=== PATIENT | male | born 1955 | race Caucasian/White ===

== ENCOUNTER 2017-07-04 14:42 | Inpatient (IN) | payer OTHER ==
[~2017-07-04] VITALS: Ht 170.2 cm; Wt 66.2 kg
[2017-07-04 14:45] VITALS: BP 161/99
--- NOTE | 2017-07-04 15:03 | NUR ---
PATIENT STILL IN [facility]. EKG DONE. ERMD MADE AWARE
--- NOTE | 2017-07-04 15:15 | NUR ---
BIB EMS WITH C/O BL CP X 1 MONTH; SEEN IN [facility] YESTERDAY AND BEEN DISCHARGED FROM ER. ASA 324MG. FIELD/EKG FIELD. DENIES N/V. HX: COPD,PACEMAKER,HTN,DM.RT. BKA WITH PROSTHESIS. PATIENT CAN NOT REMEMBER NAME OF MEDS. DENIES N/V/D; SKIN IS PINK/WARM/DRY; AAOX4; LUNGS CLEAR BL; HR EVEN AND REGULAR; PT DENIES ANY FEVER, SOB, OR COUGH AT THIS TIME; PATIENT STATES PAIN OF 9/10 AT THIS TIME; VSS; PATIENT POSITIONED FOR COMFORT; HOB ELEVATED; BEDRAILS UP X2; BED DOWN. ER MD MADE AWARE OF PT STATUS.
--- NOTE | 2017-07-04 15:33 | NUR ---
PT TAKEN TO BED 11 BY WHEELCHAIR
[2017-07-04 15:52] LABS: BASOPHILS # (AUTO) 0.1 K/uL (0.00-0.22); BASOPHILS % (AUTO) 2.1 % (0.0-2.0); EOSINOPHILS # (AUTO) 0.1 K/uL (0-0.4); EOSINOPHILS % (AUTO) 1.7 % (0.0-4.0); HEMATOCRIT 35.7 % (36-52); HEMOGLOBIN 11.6 g/dL (12.0-18.0); LYMPHOCYTES # (AUTO) 0.7 K/uL (2.0-11.5); LYMPHOCYTES % (AUTO) 16.7 % (20.5-51.1); MEAN CORPUSCULAR HEMOGLOBIN 29 pg (27-31); MEAN CORPUSCULAR HGB CONC 33 g/dL (33-37); MEAN CORPUSCULAR VOLUME 88 fL (80-94); MONOCYTES # (AUTO) 0.3 K/uL (0.8-1.0); MONOCYTES % (AUTO) 8.2 % (1.7-9.3); NEUTROPHILS # (AUTO) 3.1 K/uL (1.8-7.7); NEUTROPHILS % (AUTO) 71.3 % (42.2-75.2); PLATELET COUNT (AUTO) 101 K/uL (140-450); RED BLOOD CELL COUNT(AUTO) 4.04 MIL/uL (4.20-6.10); RED CELL DISTRIBUTION WIDTH 17.2 % (11.6-13.7); WHITE BLOOD COUNT (AUTO) 4.3 K/uL (4.8-10.8)
[2017-07-04 16:19] LABS: ANION GAP 14.6 (8-16); CARBON DIOXIDE 29.9 mmol/L (21-32); CREATININE 2.5 mg/dL (0.7-1.3); POTASSIUM 4.5 mmol/L (3.5-5.1)
[2017-07-04 16:24] LABS: ALBUMIN 2.4 g/dL (3.4-5.0); TOTAL BILIRUBIN 0.6 mg/dL (0.0-1.0)
[2017-07-04] MEDS ORDERED: CLINDAMYCIN 600 MG in DEXTROSE 5% 50 ML IV ONE (17:55)
[2017-07-04] MEDS ORDERED: ONDANSETRON 4 MG/2 ML VIAL IVP ONE (17:55)
[2017-07-04] MEDS ORDERED: MORPHINE SULFATE 4 MG/ML SYR IVP ONE (17:55)
[2017-07-04] MEDS ORDERED: CLINDAMYCIN 600 MG/4 ML VIAL ONE ×2 (18:00→21:15)
[2017-07-04] MEDS ORDERED: MORPHINE SULFATE 2 MG/ML SYR IM/IVP PRN (18:20)
--- NOTE | 2017-07-04 19:40 | NUR ---
Patient will be admitted to care of DR SCHULER. Admited to [facility]. Will go to room 111A. Belongings list completed. Report to MOE BECERRA .
[2017-07-04 19:45] VITALS: BP 135/84
--- NOTE | 2017-07-04 19:45 | NUR ---
PT ARRIVED AT UNIT VIA GURNEY, PT WENT TO ROOM 111A, STABLE, NO DISTRESS NOTED, IV TO L AC 20G SL, INTACT, PATENT, PT ON ROOM AIR NO SOB NOTED, ORIENTED PT TO UNIT, INITIAL ASSESSMENT DONE, ALL SAFETY PRECAUTION MET, CALL LIGHT WITHIN REACH, WILL CONTINUE TO MONITOR.
--- NOTE | 2017-07-04 20:00 | NUR ---
PT REFUSED TO LET NURSE ASSESS R ARM BANDAGES, STATING THAT HE WOULD BE MORE COMFORTABLE IF THE WOUND NURSE OPENS IT BECAUSE IT WILL BLEED. Addendum: 07/05/17 at 0116 by Emma Wheatley RN L ARM, NOT R ARM
--- NOTE | 2017-07-04 20:10 | NUR ---
PT MOVED TO ROOM 114, VIA BED, ALL BELONGING WITH PT, PT STABLE, NO DISTRESS NOTED, ON 2LPM O2 VIA NC, NO SOB, CALL LIGHT WITHIN REACH, WILL CONTINUE TO MONITOR.
--- NOTE | 2017-07-04 20:30 | NUR ---
CALLED DR. SCHULER REGARDING PT UNCONTROLLABLE PAIN, PT STATED HE IS IN PAIN ON THE CHEST 03/09, HE STATED THAT "1MG MORPHINE WOULD NOT DO ANYTHING, CALL THE DOCTOR, I REFUSED TO TAKE IT." PAGED DR. SCHULER AWAITING FOR TO CALL BACK.
[2017-07-04] MEDS ORDERED: DEXTROSE 50% 50 ML SYR IVP PRN (20:45)
--- NOTE | 2017-07-04 20:45 | NUR ---
TALKED TO DR. SCHULER, INFORMED DR PT CONDITION, DR ORDERED 5/325MG NORCO PO Q4H PRN PAIN, WILL PUT IN ORDER AND CONTINUE WITH ORDER.
[2017-07-04] MEDS: NACL 0.9% 1,000 ML IV SCH (21:00)
[2017-07-04] MEDS: CLINDAMYCIN 600 MG in DEXTROSE 5% 50 ML IV SCH (21:29)
--- NOTE | 2017-07-04 21:29 | NUR ---
INFORMED PT REGARDING ORDERS AND EDUCATE PT REGARDING PAIN MANAGEMENT, PT STATED UNDERSTANDING, AND WOULD TAKE THE MORPHINE ORIGINALLY ORDERED. PAIN MEDICATION GIVEN, PT TOLERATED WELL, NO DISTRESS NOTED, CALL LIGHT WITHIN REACH.
[2017-07-04] MEDS: METOPROLOL 25 MG TAB PO SCH (21:30)
[2017-07-04] MEDS: BLOOD GLUCOSE MONITORING 1 DEV DEV FS SCH (21:30)
[2017-07-04] MEDS: INSULIN LISPRO SLIDING SCALE 100 UNITS/ML VIAL SUBQ PRN (21:38)
[2017-07-04] MEDS: HYDROcodone/APAP 5/325 MG 1 TAB TAB PO PRN (23:37)
--- NOTE | 2017-07-04 23:37 | NUR ---
PT C/O PAIN 6/10 ON THE CHEST, PAIN MEDICATION ORDERED GIVEN, PT TOLERATED WELL, NO DISTRESS NOTED, CALL LIGHT WITHIN REACH, WILL CONTINUE TO MONITOR.
[2017-07-05] VITALS: BP 135/70
--- NOTE | 2017-07-05 | NUR ---
PT KEEPS TAKING OFF NC, STATED THAT HE IS BREATHING FINE, O2 SATURATION AT 96% ON ROOM AIR. PT STABLE, NO DISTRESS NOTED, NO SOB, CALL LIGHT WITHIN REACH, WILL CONTINUE TO MONITOR.
[2017-07-05 00:40] LABS: CREATINE KINASE MB 4.1 ng/mL (0-3.6)
--- NOTE | 2017-07-05 01:28 | NUR ---
PT C/O CHEST PAIN 03/09, PAIN MEDICATION ORDERED IS NOT DUE YET, PAGED DR. SCHULER REGARDING PT PAIN, AWAITING FOR TO CALL BACK.
--- NOTE | 2017-07-05 01:32 | NUR ---
DR. SCHULER CALLED, INFORMED REGARDING PT C/O PAIN AND MEDICATION ORDERS, ORDERED DILAUDID 0.5 MG IVP Q4HR, AND STATED THAT IT IS OK TO GIVE IT RIGHT NOW. WILL CONTINUE WITH DR MORE.
[2017-07-05] MEDS ORDERED: HYDROmorphone PFS 2 MG/ML SYR IVP PRN (01:35)
[2017-07-05] MEDS ORDERED: HYDROmorphone PFS 2 MG/ML SYR ONE (01:36)
--- NOTE | 2017-07-05 01:39 | NUR ---
DILAUDID 0.5MG (0.25ML) GIVEN TO PT FOR CHEST PAIN 10/[address] ORDER. PT TOLERATED WELL, NO DISTRESS NOTED, CALL LIGHT WITHIN REACH. WILL CONTINUE TO MONITOR.
--- NOTE | 2017-07-05 02:50 | NUR ---
CHECKED ON PT, PT RESTING WATCHING TV, NO DISTRESS NOTED, CALL LIGHT WITHIN REACH, WILL CONTINUE TO MONITOR.
--- NOTE | 2017-07-05 03:22 | NUR ---
DR. SCHULER CALLED, TO ORDER CT WITHOUT CONTRAST TO R/O AORTIC DISSECTION, STAT, WILL CONTINUE WITH ORDERS. Addendum: 07/05/17 at 0339 by Emma Wheatley RN AMEND TIME 0306
--- NOTE | 2017-07-05 03:22 | NUR ---
PT LEFT THE UNIT VIA BED, PT STABLE, NO DISTRESS NOTED.
[2017-07-05] MEDS: HYDROcodone/APAP 5/325 MG 1 TAB TAB PO PRN (03:53)
[2017-07-05] MEDS: ONDANSETRON 4 MG/2 ML VIAL IVP PRN ×3 (03:55→13:43)
[2017-07-05 04:00] VITALS: BP 133/83
[2017-07-05] MEDS: NACL 0.9% 1,000 ML IV SCH (04:16)
[2017-07-05] MEDS ORDERED: CLINDAMYCIN 600 MG/4 ML VIAL ONE (05:28)
[2017-07-05] MEDS: CLINDAMYCIN 600 MG in DEXTROSE 5% 50 ML IV SCH ×3 (05:45→21:07)
[2017-07-05] MEDS: INSULIN LISPRO SLIDING SCALE 100 UNITS/ML VIAL SUBQ PRN (05:59)
--- NOTE | 2017-07-05 06:04 | NUR ---
PT C/O OF PAIN ON CHEST 03/09, PAIN MEDICATION GIVEN, PT TOLERATED WELL, NO DISTRESS NOTED, CALL LIGHT WITHIN REACH.
[2017-07-05] MEDS: BLOOD GLUCOSE MONITORING 1 DEV DEV FS SCH ×4 (06:07→21:16)
--- NOTE | 2017-07-05 07:20 | NUR ---
ENDORSED PLAN OF CARE TO DAY SHIFT NURSE REZA ROSA, PT STABLE, NO DISTRESS NOTED, CALL LIGHT WITHIN REACH.
--- NOTE | 2017-07-05 07:21 | NUR ---
RECEIVED REPORT FROM STICKER OPERATOR NURSE HERNAN AT BEDSIDE FOR CONTINUITY OF CARE. PT IS AWAKE AND ORIENTED X 4. INTRODUCED SELF AND UPDATED BOARD. PT ON TELE MONITOR. SKIN WARM AND DRY. MULTIPLE SKIN TEARS ON UPPER EXTREMITIES. MULTIPLE SCABS ON LEFT LEG, DRESSING TO RIGHT LEG STUMP DRY AND INTACT. O2 SAT 98% ON RA. NO COMPLAINTS OF CHEST PAIN OR DISTRESS. IV TO L AC 20G INFUSING NS AT 100ML/HR. SITE INTACT. SITTING UP IN BED EATING BREAKFAST. BED IN LOW POSITION, WHEELS LOCKED, CALL LIGHT WITHIN REACH. WILL CONTINUE TO MONITOR.
[2017-07-05 08:00] VITALS: BP 108/72
[2017-07-05 08:23] LABS: HEMATOCRIT 35.4 % (36-52); HEMOGLOBIN 11.1 g/dL (12.0-18.0); MEAN CORPUSCULAR HEMOGLOBIN 28 pg (27-31); MEAN CORPUSCULAR HGB CONC 31 g/dL (33-37); MEAN CORPUSCULAR VOLUME 89 fL (80-94); PLATELET COUNT (AUTO) 91 K/uL (140-450); RED BLOOD CELL COUNT(AUTO) 3.97 MIL/uL (4.20-6.10); RED CELL DISTRIBUTION WIDTH 17.4 % (11.6-13.7); WHITE BLOOD COUNT (AUTO) 4.4 K/uL (4.8-10.8)
[2017-07-05 08:40] LABS: EOSINOPHILS % (MANUAL) 4 % (0-4); LYMPHOCYTES % (MANUAL) 25 % (20-46); MONOCYTES % (MANUAL) 9 % (5-12)
[2017-07-05] MEDS ORDERED: CLINDAMYCIN 600 MG/4 ML VIAL IV SCH (09:00)
[2017-07-05] MEDS ORDERED: ENOXAPARIN 30 MG/0.3 ML SYR SUBQ SCH (09:00)
[2017-07-05 09:02] LABS: ALBUMIN 2.3 g/dL (3.4-5.0); ANION GAP 11.7 (8-16); CARBON DIOXIDE 29.8 mmol/L (21-32); CREATININE 2.7 mg/dL (0.7-1.3); POTASSIUM 4.5 mmol/L (3.5-5.1); TOTAL BILIRUBIN 0.6 mg/dL (0.0-1.0)
[2017-07-05] MEDS: ASPIRIN 81 MG TAB.CHEW PO SCH (09:08)
[2017-07-05] MEDS: ATORVASTATIN 20 MG TAB PO SCH (09:08)
[2017-07-05] MEDS: METOPROLOL 25 MG TAB PO SCH (09:08)
[2017-07-05] MEDS: FOAM DRESSING TP SCH (09:09)
--- NOTE | 2017-07-05 09:09 | NUR ---
PATIENT HAS BEEN SCREENED AND CATEGORIZED HIGH NUTRITION RISK. PATIENT WILL BE SEEN WITHIN 1-2 DAYS OF ADMISSION. 07/04/18-07/05/[address]
[2017-07-05 09:14] LABS: CREATINE KINASE MB 5.9 ng/mL (0-3.6)
--- NOTE | 2017-07-05 10:12 | NUR ---
WOUND CARE EVALUATION NOTES: REASON FOR EVALUATION: MULTIPLE WOUNDS COMPLETE SKIN ASSESSMENT DONE ON THIS 80 Y/O MALE PATIENT FROM [facility] TO [facility], WITH INITIAL DIAGNOSIS OF FEVER AND PULL OUT SUPRAPUBIC CATH. PAST MEDICAL HISTORY INCLUDE COPD, CVA, DIABETES, HYPERTENSION AND ESRD. ALL ABOVE INFORMATION WAS OBTAINED FROM THE ADMISSION H&P. LABS ARE WBC 14.9, H/H 9.3/29.2, POC GLUCOSE 77, ALBUMIN 2.9. CURRENT MEDS INCLUDE PIPERACILLIN, QUETIAPINE, LEVOTHYROXINE, DONEPEZIL HCL, TRAMADOL AND ATIVAN. PATIENT IS AWAKE, ALERT, AND ABLE TO FOLLOW SIMPLE COMMANDS. SKIN WARM TO TOUCH WNL, THICKENED TOENAILS, NO EDEMA, NO HAIR GROWTH AND BILATERAL PEDAL PULSES PRESENT. RIGHT FOREARM PERIPHERAL IV PATENT AND INTACT. LEFT ARM AV FISTULA NOTED. SUPRAPUBIC CATHETER PATENT AND INTACT TO ALVIN COLORED URINE IN SMALL AMOUNT. NEEDS ASSISTANCE IN TURNING. PLAN OF CARE AND PRESSURE PREVENTIVE MEASURES DISCUSSED WITH PT AND PRIMARY NURSE. PT UNABLE TO VERBALIZE UNDERSTANDING. WILL REINFORCE TEACHING. INTEGUMENTARY: -MULTIPLE BRUISES TO UPPER EXTREMITIES POSSIBLE FROM BLOOD DRAW AND BLOOD THINNER MEDICATION -LEFT HAND SKIN TEAR 4X5X0.1 WOUND BED IS RED WITH SMALL AMOUNT OF BLEEDING, NO ODOR, NO DRAINAGE. -RIGHT LATERAL THIGH SKIN ALTERATION POSSIBLE FRICTION FROM PROTHESIS 4X2X0.1 CM WOUND BED PALE PINK, DRY , NO ODOR ,WOUND EDGE FLAT, PAIN 0/10. -MULTIPLE SCABS TO LLE WITH LARGEST ON LEFT STEWART MEASURED 3X1.5CM -L/R BUTTOCKS FUNGAL RASHES DERMATITIS -LEFT HEEL THICK CALLUS RECOMMENDATIONS: -CLEANSE LEFT HAND SKIN TEAR WITH NS. PAT DRY APPLY VERSATEL AND COVER WITH DRY DRESSING AND WRAP WITH KERLIX CHANGE Q5 DAYS AND PRN IF SOILING -CLEANSE RIGHT LATERAL THIGH SKIN ALTERATION WITH NS. PAT DRY APPLY SILVASORB GEL WITH ADAPTIC DRESSING AND COVER WITH DRY DRESSING AND WRAP WITH KERLIX QD AND PRN IF SOILING. -PAINT MULTIPLE SCABS TO LLE WITH BETADINE SOLUTION BID AND BUCKLE GLUER -CLEANSE L/R BUTTOCKS FUNGAL RASHES WITH SOAP AND WATER, PAT DRY, APPLY ANTIFUNGAL CREAMS AND LEAVE IT OPEN TO AIR -TURN AND REPOSITION PATIENT Q2H -ASSESS AND MONITOR SKIN CONDITION DURING POSITION CHANGE, PLEASE PAY ATTENTION TOHEEL -OFFLOAD BILATERAL HEELS BY PLACING PILLOWS UNDER CALVES AT ALL TIMES, UNLESS OTHERWISE CONTRAINDICATED -PRESSURE REDISTRIBUTION SURFACE THERAPY -KEEP SKIN CLEAN AND DRY AT ALL TIMES. RECOMMENDATIONS DISCUSSED WITH PRIMARY RN WILL FOLLOW UP PATIENT Q 7 -10 DAYS AND PRN. PLEASE CONTACT WOUND CARE NURSE FOR ANY CONCERNS AND CHANGES IN WOUND CONDITION Addendum: 07/05/17 at 1054 by Jen Osorio RN (Grace) CLARIFICATION : NO PRESSURE ULCER INJURY ON SACRALCOCCYX AREA , AREA IS DRY AND CLEAN, WITH SKIN INTACT. Addendum: 07/05/17 at 1304 by Jen Osorio RN (Grace) CHARTING :WRONG DOCUMENTATION
--- NOTE | 2017-07-05 11:01 | NUR ---
CM NOTE INITIAL REVIEW FAXED TO [facility] [phone] JOANNA # [phone]
[2017-07-05 12:00] VITALS: BP 120/75
[2017-07-05] MEDS ORDERED: NACL 0.9% IRR 250 ML BOTTLE IR SCH (13:00)
[2017-07-05] MEDS: MILD SOAP AND WATER TP SCH (13:00)
[2017-07-05] MEDS: GAUZE TP SCH (13:00)
[2017-07-05] MEDS: NACL 0.9% IRR 250 ML BOTTLE IR SCH ×2 (13:00)
[2017-07-05] MEDS: NITROGLYCERIN 2% 1 GM PKT TP SCH ×2 (13:00→21:09)
--- NOTE | 2017-07-05 13:04 | NUR ---
WOUND CARE EVALUATION NOTES: REASON FOR EVALUATION: OPEN WOUNDS COMPLETE SKIN ASSESSMENT DONE ON THIS 62 Y/O MALE PATIENT FROM [facility], WITH INITIAL DIAGNOSIS OF C/O CHEST PRESSURE. PAST MEDICAL HISTORY INCLUDE COPD, RIGHT BKA, DIABETES, HYPERTENSION AND AICD. ALL ABOVE INFORMATION WAS OBTAINED FROM THE ADMISSION H&P AND PT. PT IS AAX4. LABS ARE WBC 4.3, H/H 11.6/35.7, GLUCOSE 380, ALBUMIN 2.4. SKIN WARM AND THIN TO TOUCH , THICKENED TOENAILS LEFT FOOT, NO EDEMA, WITH HAIR GROWTH AND LEFT FOOT DORSAL PEDAL PULSES PRESENT AND NORMAL.ORTHO PROTHESIS TO RIGHT BKA AT BED SIDE. PLAN OF CARE DISCUSSED WITH PRIMARY NURSE AND PT. PT VERBALIZES UNDERSTAND. INTEGUMENTARY: CLARIFICATION : NO PRESSURE ULCER INJURY ON SACRALCOCCYX AREA , AREA IS DRY AND CLEAN, WITH SKIN INTACT. -MULTIPLE BRUISES TO UPPER EXTREMITIES POSSIBLE FROM BLOOD DRAW AND BLOOD THINNER MEDICATION -LEFT HAND SKIN TEAR 4X5X0.1 WOUND BED IS RED WITH SMALL AMOUNT OF BLEEDING, NO ODOR, NO DRAINAGE. -RIGHT LATERAL THIGH SKIN ALTERATION POSSIBLE FRICTION FROM PROTHESIS 4X2X0.1 CM WOUND BED PALE PINK, DRY , NO ODOR ,WOUND EDGE FLAT, PAIN 0/10. -MULTIPLE SCABS TO LLE WITH LARGEST ON LEFT STEWART MEASURED 3X1.5CM -L/R BUTTOCKS FUNGAL RASHES DERMATITIS -LEFT HEEL THICK CALLUS RECOMMENDATIONS: -CLEANSE LEFT HAND SKIN TEAR WITH NS. PAT DRY APPLY VERSATEL AND COVER WITH DRY DRESSING AND WRAP WITH KERLIX CHANGE Q5 DAYS AND PRN IF SOILING -CLEANSE RIGHT LATERAL THIGH SKIN ALTERATION WITH NS. PAT DRY APPLY SILVASORB GEL WITH ADAPTIC DRESSING AND COVER WITH DRY DRESSING AND WRAP WITH KERLIX QD AND PRN IF SOILING. -PAINT MULTIPLE SCABS TO LLE WITH BETADINE SOLUTION BID AND FRANKIE -CLEANSE L/R BUTTOCKS FUNGAL RASHES WITH SOAP AND WATER, PAT DRY, APPLY ANTIFUNGAL CREAMS AND LEAVE IT OPEN TO AIR -TURN AND REPOSITION PATIENT Q2H -ASSESS AND MONITOR SKIN CONDITION DURING POSITION CHANGE, PLEASE PAY ATTENTION TO LEFT HEEL -OFFLOAD BILATERAL HEELS BY PLACING PILLOWS UNDER CALVES AT ALL TIMES, UNLESS OTHERWISE CONTRAINDICATED -PRESSURE REDISTRIBUTION SURFACE THERAPY -KEEP SKIN CLEAN AND DRY AT ALL TIMES. RECOMMENDATIONS DISCUSSED WITH PRIMARY RN WILL FOLLOW UP PATIENT Q 7 -10 DAYS AND PRN. PLEASE CONTACT WOUND CARE NURSE FOR ANY CONCERNS AND CHANGES IN WOUND CONDITION
--- NOTE | 2017-07-05 13:25 | NUR ---
PT STATED THAT HIS STOMACH HURTS AND THAT "HE DOES NOT FEEL GOOD." OFFERED PAIN MEDICATION. PT REFUSED AND REQUESTED ICE CHIPS. PAGED FOR DR. SOLOMON
[2017-07-05] MEDS: ALUMINUM HYD/MAG/SIMETHICONE 30 ML UDC PO PRN ×2 (13:42→23:25)
--- NOTE | 2017-07-05 14:00 | NUR ---
ADMINISTERED ZOFRAN FOR NAUSEA. PT COMPLAINED OF ABD PAIN. OFFERED MYLANTA PO. PT REFUSED MED. EXPLAINED RISKS AND BENEFITS. PT STATED "JUST LET ME REST, I DON'T WANT TO TAKE THAT NOW." PT MOANING FROM ABD PAIN. OFFERED PAIN MED. REFUSED MED. REPORTED TO DR. SOLOMON. WILL CONTINUE TO MONITOR.
--- NOTE | 2017-07-05 15:58 | NUR ---
CHECKED ON PT IN ROOM. STATED THAT HIS "STOMACH HURTS." OFFERED MYLANTA AND PAIN MED FOR ABD PAIN. PT REFUSED MED. EXPLAINED RISKS AND BENEFITS. PT STILL REFUSED TO TAKE MEDS. PT STATED "JUST LEAVE ME ALONE, I KNOW WHAT YOU ARE TRYING TO DO BUT I DON'T WANT TO TAKE ANY OF THAT." OFFERED REPOSITION CHANGE IN BED AND HEATING PAD AND ICE PACK FOR PAIN. PT STILL REFUSED NONPHARMACOLOGICAL MEASURES. VS: TEMP 98.2, HR 60, BP 120/77, RR 18, O2 96% ON RA. PT IS SITTING UP IN BED. CALL LIGHT WITHIN REACH. WILL CONTINUE TO MONITOR.
[2017-07-05 16:00] VITALS: BP 120/77
--- NOTE | 2017-07-05 16:30 | NUR ---
CHECKED ON PT IN ROOM. BS 70. ENCOURAGED PT TO DRINK ORANGE JUICE AND HAVE SNACK OF CRACKERS. PT TOLERATED WELL. PT MOANING FROM STOMACH PAIN. PT PASSED GAS BUT STATED NO BM SINCE 2 DAYS AGO. OFFERED STOOL SOFTENER AND PAIN MED. PT REFUSED MEDS. EXPLAINED TO PT RISKS AND BENEFITS. STATED "JUST LEAVE ME ALONE." PT WENT BACK TO BED. SLEEPING RIGHT NOW WITH VISIBLE RESPIRATIONS. WILL CONTINUE TO MONITOR.
--- NOTE | 2017-07-05 16:37 | NUR ---
07/05/2017 RD INITIAL ASSESSMENT COMPLETED PLEASE REFER TO NUTRITION ASSESSMENT UNDER CARE ACTIVITY FOR ESTIMATED NUTRITIONAL NEEDS. CONSIDER RENAL DIET RESTRICTIONS RD TO FOLLOW-UP IN 3-5 DAYS PATIENT IS MODERATE RISK. ISAC ROCHA, RD
--- NOTE | 2017-07-05 18:13 | NUR ---
PT SLEEPING IN BED WITH VISIBLE RESPIRATIONS. NO SIGNS OF DISTRESS. FOUND DRESSING TO R STUMP FELL OFF. TRIED TO APPLY NEW DRESSING TO SITE. PT REFUSED FOR NEW DRESSING CHANGE AND CLEANING OF STUMP. TOLD PT WILL NEED TO COVER OPEN WOUND AND RISKS. PT STILL REFUSING DRESSING CHANGE. OFFERED TO TRY LATER. CALL LIGHT WITHIN REACH. WILL CONTINUE TO MONITOR.
--- NOTE | 2017-07-05 19:25 | NUR ---
ENDORSED PT TO GOLF COURSE MANAGER NURSE JULEE AT BEDSIDE FOR CONTINUITY OF CARE. PT IN STABLE CONDITION. SLEEPING IN BED.
--- NOTE | 2017-07-05 19:26 | NUR ---
RECEIVED HANDOFF REPORT FROM AM RN. PATIENT A&OX4. PATIENT STATES STOMACH UPSET BUT REFUSES MEDICATION. OFFERED PRUNE JUICE, PATIENT REFUSED. IV SITE PATENT AND INTACT. NO SIGNS OR SYMPTOMS OF ACUTE DISTRESS NOTED. SAFETY MEASURES ENSURED. CALL LIGHT WITHIN REACH. WILL CONTINUE TO MONITOR.
[2017-07-05 20:00] VITALS: BP 124/85
--- NOTE | 2017-07-05 21:21 | NUR ---
PM MEDS GIVEN WITH EDUCATION. HEPARIN HELD D/T LOW PLATELET COUNT. NO SIGNS OR SYMPTOMS OF ACUTE DISTRESS NOTED. PATIENT VERBALIZED UNDERSTANDING. PATIENT REFUSED MEDICATION FOR UPSET STOMACH/CONSTIPATION. OFFERED PRUNE JUICE, PATIENT REFUSED. CALL LIGHT WITHIN REACH. WILL CONTINUE TO MONITOR.
--- NOTE | 2017-07-05 22:41 | NUR ---
PATIENT STATES FEELING "TERRIBLE" BUT REFUSES MEDICATION. OFFERED WATER AND PRUNE JUICE TO AID CONSTIPATION. PATIENT REFUSED. NO SIGNS OR DISTRESS NOTED. PATIENT RESTING IN BED. SAFETY MEASURES ENSURED. CALL LIGHT WITHIN REACH. WILL CONTINUE TO MONITOR.
[2017-07-06] VITALS: BP 122/79
[2017-07-06] MEDS: NACL 0.9% IRR 250 ML BOTTLE IR SCH ×3 (00:31→14:00)
[2017-07-06] MEDS: MILD SOAP AND WATER TP SCH ×2 (00:31→14:00)
--- NOTE | 2017-07-06 01:10 | NUR ---
PATIENT STATES PAIN IN ABDOMEN. OFFERED NORCO ORDERED. PATIENT REFUSES MEDICATION. OFFERED PRUNE JUICE AND WATER, PATIENT REFUSED WELL. PATIENT STATES HE WANTS TO GO ON HOSPICE. WILL RELAY MESSAGE TO MD FOR FURTHER INFORMATION. PATIENT REFUSED PACKET AND INFORMATION ON HOSPICE. PATIENT STATES HE WANTS MORPHINE, BUT "THE DR HARTMAN GIVE ME SHIT, THATS WHY I WANT TO GO ON HOSPICE". PATIENT STATES HE WANTS TO GIVE UP AND STOP FIGHTING FOR HIS LIFE, PATIENT DENIES ANY THOUGHTS OF HURTING HIMSELF. WILL CONTINUE TO MONITOR.
--- NOTE | 2017-07-06 02:45 | NUR ---
PATIENT REQUESTS SITTING IN WHEELCHAIR. DIRECTIONAL BORE OPERATOR ASSISTED IN GETTING PATIENT TO WHEEL CHAIR. PATIENT TOLERATED WELL. NO SIGNS OF DISTRESS NOTED. CALL LIGHT WITHIN REACH. WILL CONTINUE TO MONITOR.
--- NOTE | 2017-07-06 03:30 | NUR ---
PATIENT BACK IN BED. NO SIGNS OF DISTRESS. SAFETY MEASURES ENSURED. WILL CONTINUE TO MONITOR.
[2017-07-06 04:00] VITALS: BP 124/78
[2017-07-06] MEDS: NITROGLYCERIN 2% 1 GM PKT TP SCH ×3 (05:57→20:56)
[2017-07-06] MEDS: CLINDAMYCIN 600 MG in DEXTROSE 5% 50 ML IV SCH (05:57)
[2017-07-06] MEDS: LEVOTHYROXINE 0.075 MG TAB PO SCH (05:57)
--- NOTE | 2017-07-06 06:05 | NUR ---
PATIENT REFUSED SYNTHROID. NO DISTRESS NOTED. SAFETY MEASURES ENSURED. WILL CONTINUE TO MONITOR.
[2017-07-06] MEDS: BLOOD GLUCOSE MONITORING 1 DEV DEV FS SCH ×4 (06:32→20:56)
--- NOTE | 2017-07-06 07:05 | NUR ---
ASSUMED CONTINUITY OF CARE. NO SIGNS AND SYMPTOMS OF ACUTE DISTRESS NOTED. INITIAL ASSESSMENT DONE. KEEP COMFORTABLE ON BED. EXPLAINED DIAGNOSIS, PLAN OF CARE, PAIN MANAGEMENT TEACHING, CONTACT ISOLATION PRECAUTION, USE OF CALL LIGHT/BED/TV/BATHROOM. VERBALIZED UNDERSTANDING. FALL PRECAUTION APPLIED. CALL LIGHT WITHIN REACH.
[2017-07-06 07:07] LABS: BASOPHILS # (AUTO) 0.3 K/uL (0.00-0.22); BASOPHILS % (AUTO) 4.8 % (0.0-2.0); EOSINOPHILS # (AUTO) 0.1 K/uL (0-0.4); EOSINOPHILS % (AUTO) 0.9 % (0.0-4.0); HEMATOCRIT 35.7 % (36-52); HEMOGLOBIN 11.9 g/dL (12.0-18.0); LYMPHOCYTES # (AUTO) 0.7 K/uL (2.0-11.5); LYMPHOCYTES % (AUTO) 10.2 % (20.5-51.1); MEAN CORPUSCULAR HEMOGLOBIN 29 pg (27-31); MEAN CORPUSCULAR HGB CONC 33 g/dL (33-37); MEAN CORPUSCULAR VOLUME 87 fL (80-94); MONOCYTES # (AUTO) 0.3 K/uL (0.8-1.0); MONOCYTES % (AUTO) 4.9 % (1.7-9.3); NEUTROPHILS # (AUTO) 5.2 K/uL (1.8-7.7); NEUTROPHILS % (AUTO) 79.2 % (42.2-75.2); PLATELET COUNT (AUTO) 117 K/uL (140-450); RED BLOOD CELL COUNT(AUTO) 4.08 MIL/uL (4.20-6.10); RED CELL DISTRIBUTION WIDTH 16.9 % (11.6-13.7); WHITE BLOOD COUNT (AUTO) 6.6 K/uL (4.8-10.8)
--- NOTE | 2017-07-06 07:15 | NUR ---
ENDORSED PLAN OF CARE TO AM RN. PATIENT IN STABLE CONDITION.
[2017-07-06 07:24] LABS: CREATININE 3.1 mg/dL (0.7-1.3)
--- NOTE | 2017-07-06 07:30 | NUR ---
Patient's Plan of Care was discussed and reviewed with SESSIONS CLERK: JOAN KEEN.
[2017-07-06 08:00] VITALS: BP 144/82
[2017-07-06] MEDS: CLOPIDOGREL 75 MG TAB PO SCH (09:00)
[2017-07-06] MEDS: amLODIPine 5 MG TAB PO SCH (09:00)
[2017-07-06] MEDS: DOCUSATE SODIUM 100 MG GELCAP PO SCH (09:00)
[2017-07-06] MEDS: ASPIRIN 81 MG TAB.CHEW PO SCH (09:00)
[2017-07-06] MEDS: ATORVASTATIN 20 MG TAB PO SCH (09:00)
[2017-07-06] MEDS: LISINOPRIL 5 MG TAB PO SCH (09:00)
[2017-07-06] MEDS ORDERED: ASPIRIN 81 MG TAB.CHEW PO SCH (09:00)
[2017-07-06] MEDS: CARVEDILOL 12.5 MG TAB PO SCH (09:00)
--- NOTE | 2017-07-06 09:16 | NUR ---
DR. SOLOMON CAME, INFORMED OF PT. K 6.0. NO ORDER RECEIVED.
--- NOTE | 2017-07-06 10:27 | NUR ---
CM NOTE CONCURRENT REVIEW FAXED TO [facility] [phone] JOANNA # [phone]
--- NOTE | 2017-07-06 10:30 | NUR ---
Extrusion Press Supervisor Notes: I met again with patient to discuss and gather information needed; Patient was awake and alert stated feeling a little better but still having pain. Patient stated living with his brother Morales Saab in [facility]. Patient stated not having an advance directive and declined information and forms again. Stated that he is the one making all his medical decisions and when he is unable; his brother Morales Saab will be making decisions for patient. Patient stated having Dialysis from [facility] on Tuesdays, and Wednesday at 5:00am. Patient reported having home health services for some time however; he is no longer receiving services since he moved to [place] in 03/2017. Patient stated Not having an MD. in the area and insisted on getting Hospice services. Patient stated "I am tired of been on pain all the time and I don't believe anything I am doing its helping me. " I want to talk to a hospice food service representative" I informed Patient that I will inform case finisher to contact a hospice food service representative that can come meet with patient. He agreed and thank these mortgage or loan underwriter.
--- NOTE | 2017-07-06 10:49 | NUR ---
CM NOTE RECEIVED ORDER FOR HOSPICE EVAL. PER [facility] CALL [facility] TO COME SEE THE PATIENT. SPOKE WITH CHARISSA MONTANO FROM [facility] PH# [phone] AND SHE SAID SHE WILL COME THIS AFTERNOON TO SEE PATIENT FOR HOSPICE EVAL. JOAN ARCEO AWARE.
--- NOTE | 2017-07-06 11:20 | NUR ---
PATTERN PAINTER SAW CAME AND SPOKE TO PT. AT BEDSIDE.
[2017-07-06 12:00] VITALS: BP 143/82
[2017-07-06] MEDS: CLINDAMYCIN 150 MG CAP PO SCH ×2 (12:16→18:02)
--- NOTE | 2017-07-06 12:45 | NUR ---
HOSPICE NURSE -CHARISSA CAME AND EVALUATE PT..
--- NOTE | 2017-07-06 13:00 | NUR ---
DR. MEDRANO CAME, REVIEWED PT. CHART, SEEN PT.. AND SPOKE TO HOSPICE NURSE -CHARISSA.
--- NOTE | 2017-07-06 13:47 | NUR ---
CALLED HD NURSE -JERI RAMIREZ AT AND INFORMED THAT DR. MEDRANO CANCELLED PT. HD. ALSO INFORMED CHARGE NURSE SOFI EASTON.
--- NOTE | 2017-07-06 13:58 | NUR ---
CM NOTE CHARISSA MONTANO FROM [facility] PH# [phone] CAME TO EVALUATE PATIENT AND SHE SAID THEY CAN TAKE PATIENT. [facility] CM JOANNA AND CHARGE NURSE CHELY GARVIN.
[2017-07-06] MEDS: GAUZE TP SCH (14:01)
--- NOTE | 2017-07-06 19:05 | NUR ---
BEDSIDE REPORT GIVEN TO ANDRE HO IN STABLE CONDITION.
--- NOTE | 2017-07-06 19:06 | NUR ---
RECD. RESTING IN BED, AWAKE, A/OX4. RESPIRATION EVEN AND UNLABORED. 02 SAT - 96% AT ROOM AIR. NOTED SKIN TEARS, BRUISES ON BILATERAL ARMS, SCABS ON LEFT LEG, WOUND IN THE RIGHT BKA STUMP COVERED WITH DRESSING DRY AND INTACT. VERBALIZED FEELING UPSET WITH HIS MD, STATED MD DOES CARE ABOUT HIS BACK PAIN, CLAIMING FEELING SORE 5/10, OFFERED NORCO BUT REFUSED, WANTS MORPHINE OR DILAUDID. PLAN OF CARE FOR THE SHIFT DISCUSSED. STATED DOES NOT WANT TO TAKE HIS NIGHT MEDS EXCEPT SLEEPING PILL. SAFETY MEASURES ENFORCED.
[2017-07-06 20:00] VITALS: BP 146/89
[2017-07-06] MEDS: TEMAZEPAM 15 MG CAP PO PRN (20:51)
--- NOTE | 2017-07-06 20:51 | NUR ---
MEDICATED WITH RESTORIL FOR SLEEP REQUESTED, ABLE TO CONVINCED ALSO TO TAKE NORCO FOR PAIN, AGREED.
[2017-07-06] MEDS: HYDROcodone/APAP 5/325 MG 1 TAB TAB PO PRN (20:54)
--- NOTE | 2017-07-06 21:55 | NUR ---
SLEEPING COMFORTABLY IN BED.
--- NOTE | 2017-07-06 22:00 | NUR ---
Patient's Plan of Care was discussed and reviewed with NEURORADIOLOGIST: ANDRE GRIMM
--- NOTE | 2017-07-06 23:30 | NUR ---
AWAKE IN BED, COMPLAINED THAT HE ONLY SLEEP A LITTLE, SEEMS WITH ANXIETY. WILL INFORM MD.
[2017-07-07] VITALS: BP 137/90
[2017-07-07] MEDS: CLINDAMYCIN 150 MG CAP PO SCH ×4 (00:36→18:00)
[2017-07-07] MEDS: LORazepam 2 MG/ML VIAL IVP PRN ×2 (00:44→22:13)
--- NOTE | 2017-07-07 00:44 | NUR ---
WITH AGITATION, MEDICATED WITH ATIVAN 0.5 MG IVP BY MOE LUU.
[2017-07-07] MEDS: NACL 0.9% IRR 250 ML BOTTLE IR SCH ×3 (01:00→13:00)
[2017-07-07] MEDS: MILD SOAP AND WATER TP SCH ×2 (01:00→13:00)
--- NOTE | 2017-07-07 01:14 | NUR ---
NO AGITATION, SLEEPING COMFORTABLY IN BED.
[2017-07-07 04:00] VITALS: BP 127/78
--- NOTE | 2017-07-07 04:00 | NUR ---
REQUESTED TO BE PUT ON THE W/C FOR FEW MINUTES.
--- NOTE | 2017-07-07 04:15 | NUR ---
ASSISTED BACK TO BED BY DRILL PRESS OPERATOR FOR METAL. SAFETY MAINTAINED.
[2017-07-07] MEDS: NITROGLYCERIN 2% 1 GM PKT TP SCH ×3 (05:00→21:00)
[2017-07-07] MEDS: LEVOTHYROXINE 0.075 MG TAB PO SCH (06:36)
[2017-07-07] MEDS: BLOOD GLUCOSE MONITORING 1 DEV DEV FS SCH ×4 (06:36→21:12)
[2017-07-07 07:09] LABS: ANION GAP 18.3 (8-16); CARBON DIOXIDE 24.2 mmol/L (21-32); CREATININE 3.5 mg/dL (0.7-1.3); POTASSIUM 5.5 mmol/L (3.5-5.1)
--- NOTE | 2017-07-07 07:15 | NUR ---
STILL SLEEPING COMFORTABLY, CONDITION REMAIN STABLE. ENDORSED TO AM NURSE FOR CONTINUITY OF CARE.
[2017-07-07 07:16] LABS: BASOPHILS # (AUTO) 0.1 K/uL (0.00-0.22); BASOPHILS % (AUTO) 2.9 % (0.0-2.0); EOSINOPHILS # (AUTO) 0.1 K/uL (0-0.4); EOSINOPHILS % (AUTO) 2.6 % (0.0-4.0); HEMATOCRIT 34.8 % (36-52); HEMOGLOBIN 11.4 g/dL (12.0-18.0); LYMPHOCYTES % (AUTO) 22.2 % (20.5-51.1); MEAN CORPUSCULAR HEMOGLOBIN 29 pg (27-31); MEAN CORPUSCULAR HGB CONC 33 g/dL (33-37); MEAN CORPUSCULAR VOLUME 88 fL (80-94); MONOCYTES # (AUTO) 0.4 K/uL (0.8-1.0); MONOCYTES % (AUTO) 8.8 % (1.7-9.3); NEUTROPHILS # (AUTO) 3.1 K/uL (1.8-7.7); NEUTROPHILS % (AUTO) 63.5 % (42.2-75.2); PLATELET COUNT (AUTO) 140 K/uL (140-450); RED BLOOD CELL COUNT(AUTO) 3.95 MIL/uL (4.20-6.10); RED CELL DISTRIBUTION WIDTH 17.1 % (11.6-13.7); WHITE BLOOD COUNT (AUTO) 4.7 K/uL (4.8-10.8)
--- NOTE | 2017-07-07 07:16 | NUR ---
RECEIVED REPORT FROM ROUND UP RING HAND NURSE AT BEDSIDE FOR CONTINUITY OF CARE. PATIENT SLEEPING IN BED, AROUSABLE, A/OX4. RESPIRATION EVEN AND UNLABORED. NOTED SKIN TEARS, BRUISES ON BILATERAL ARMS, SCABS ON LEFT LEG, WOUND IN THE RIGHT BKA STUMP COVERED WITH DRESSING DRY AND INTACT. VERBALIZED FEELING UPSET WITH HIS MD, STATED MD DOES CARE ABOUT HIS BACK PAIN, CLAIMING FEELING SORE 5/10, NORCO OFFERED BUT PT REFUSED, WANTS MORPHINE OR DILAUDID. SAFETY AND ISOLATION MEASURES IN PLACE, CALL LIGHT WITHIN REACH, WILL CONTINUE TO MONITOR PATIENT.
[2017-07-07 08:00] VITALS: BP 149/97
--- NOTE | 2017-07-07 08:15 | NUR ---
PATIENT CURRENTLY EATING BREAKFAST. PATIENT REFUSE ALL OF HIS MORNING MEDICATIONS, C/O BACK PAIN 12/07, NORCO WAS OFFERED. PATIENT REFUSED. RESTATED THAT ONLY MORPHINE OR DILAUDID WILL WORK. SAFETY AND ISOLATION PRECAUTIONS IN PLACE, CALL LIGHT WITHIN REACH. WILL CONTINUE TO MONITOR PATIENT.
[2017-07-07] MEDS: CLOPIDOGREL 75 MG TAB PO SCH (09:00)
[2017-07-07] MEDS: ATORVASTATIN 20 MG TAB PO SCH (09:00)
[2017-07-07] MEDS: amLODIPine 5 MG TAB PO SCH (09:00)
[2017-07-07] MEDS: ASPIRIN 81 MG TAB.CHEW PO SCH (09:00)
[2017-07-07] MEDS: DOCUSATE SODIUM 100 MG GELCAP PO SCH (09:00)
[2017-07-07] MEDS: LISINOPRIL 5 MG TAB PO SCH (09:00)
[2017-07-07] MEDS: CARVEDILOL 12.5 MG TAB PO SCH (09:00)
--- NOTE | 2017-07-07 09:10 | NUR ---
CM NOTE CONCURRENT REVIEW FAXED TO [facility] [phone] JOANNA PH# [phone]. PER CHARISSA García OF [facility] PH# [phone] THEY ARE STILL TRYING TO GET A SNF.
[2017-07-07] MEDS ORDERED: LISI-424 PO (10:13)
[2017-07-07] MEDS ORDERED: SYN.075 PO (10:13)
[2017-07-07] MEDS ORDERED: CLIN150C15 PO (10:13)
[2017-07-07] MEDS ORDERED: CARV12.52 PO (10:13)
[2017-07-07] MEDS ORDERED: CLOP75TA26 PO (10:13)
[2017-07-07] MEDS ORDERED: DOCU-299 PO (10:13)
[2017-07-07] MEDS ORDERED: AMLO5TAB4 PO (10:13)
[2017-07-07] MEDS ORDERED: ASPI81CT95 PO (10:13)
--- NOTE | 2017-07-07 11:00 | NUR ---
PATIENT SLEEPING, BREATHING EVEN AND UNLABORED, NO SIGNS OF DISTRESS NOTED, SAFETY AND ISOLATION PRECAUTION IN PLACE, CALL LIGHT WITHIN REACH, WILL CONTINUE TO MONITOR PATIENT.
[2017-07-07 12:00] VITALS: BP 141/87
[2017-07-07] MEDS: INSULIN LISPRO SLIDING SCALE 100 UNITS/ML VIAL SUBQ PRN ×2 (12:03→16:57)
[2017-07-07] MEDS: GAUZE TP SCH (13:00)
--- NOTE | 2017-07-07 13:15 | NUR ---
PATIENT REFUSED TO CHANGE WOUND DRESSING OR IRRIGATE WOUNDS. PATIENT REQUESTED TO BE LEFT ALONE. HE JUST WANTED SOME ICE CREAM. DIETARY WAS CALLED. NO ANSWER. ONLY SUGAR FREE POPSICLE WAS GIVEN TO PATIENT DUE TO HIS DIET. PATIENT RESTING, NO SIGNS OF DISTRESS OR SOB NOTED, BREATHING EVEN AND UNLABORED. PATIENT STATES PAIN 7/10 D/T BACK, BUT REFUSES NORCO PRN. SAFETY AND ISOLATION PRECAUTIONS IN PLACE, CALL LIGHT WITHIN REACH, WILL CONTINUE TO MONITOR PATIENT.
--- NOTE | 2017-07-07 15:15 | NUR ---
PATIENT SLEEPING IN BED, NO SIGNS OF DISTRESS OR SOB NOTED, BREATHING EVEN AND UNLABORED. SAFETY AND ISOLATION PRECAUTIONS IN PLACE, CALL LIGHT WITHIN REACH, WILL CONTINUE TO MONITOR PATIENT.
[2017-07-07 16:00] VITALS: BP 132/85
[2017-07-07] MEDS: HYDROcodone/APAP 5/325 MG 1 TAB TAB PO PRN ×2 (17:05→22:12)
--- NOTE | 2017-07-07 17:05 | NUR ---
BLOOD SUGAR 203, INSULIN COVERAGE GIVEN. VS WNL. PT C/O PAIN 10/10 BACK PAIN. NORCO PRN OFFERED, PATIENT ACCEPTED, NORCO PRN ADMINISTERED. PATIENT TOLERATED IT WELL. PATIENT REQUESTED HOSPICE PHONE NUMBER, PHONE NUMBER GIVEN. PATIENT RESTING AND WATCHING TV, AWAITING NEWS ABOUT HOSPICE. NO SIGNS OF DISTRESS NOTED. SAFETY AND ISOLATION PRECAUTIONS IN PLACE, BED ON LOWEST SETTING, BED ALARM ON, CALL LIGHT WITHIN REACH. WILL CONTINUE TO MONITOR PATIENT.
--- NOTE | 2017-07-07 17:10 | NUR ---
CHARISSA FROM [facility] CALLED BACK AND CLARIFIED IF PATIENT IS ISOLATION UPDATED HER WITH PATIENT ISOLATION CHARISSA STATED TRYING TO GET A BED AT [facility] AND WILL CALL BACK
--- NOTE | 2017-07-07 17:31 | NUR ---
CHARISSA FROM [facility] CALLED BACK AND STATED [facility] HAS NO ISO BED
--- NOTE | 2017-07-07 19:25 | NUR ---
REPORT GIVEN TO TIRE CENTER MANAGER NURSE AT BEDSIDE FOR CONTINUITY OF CARE. PATIENT IN STABLE CONDITION.
--- NOTE | 2017-07-07 19:26 | NUR ---
PATIENT REPORT RECEIVED FROM MORNING NURSE AT BEDSIDE. PATIENT IS AWAKE AND ALERT. NO SIGNS AND SYMPTOMS OF DISTRESS NOTED. IV SITE NOTED ON LEFT AC, SALINE LOCKED. SEVERAL SKIN TEARS NOTED ON BOTH ARMS, SCABS NOTED ON BOTH EXTREMITIES. PATIENT HAS A RIGHT BKA. PLAN OF CARE DISCUSSED WITH PATIENT. REINFORCEMENT NEEDED. BED IN LOWEST POSITION, SIDE RAILS UP AND CALL LIGHT WITHIN REACH. WILL CONTINUE TO MONITOR.
[2017-07-07 20:00] VITALS: BP 143/95
--- NOTE | 2017-07-07 22:00 | NUR ---
PATIENT REFUSED ALL EVENING MEDICATION. ONLY WANTED NORCO AND ATIVAN. EDUCATED PATIENT ON MEDS HE REFUSED. PATIENT SAID "HE DOESN'T WANT IT, IT'S NOT IMPORTANT RIGHT NOW." Addendum: 07/08/17 at 0335 by Ralph Whitley RN NOT "HE DOESN'T" HE SAID "I DON'T
[2017-07-08] VITALS: BP 146/96
[2017-07-08] MEDS: MILD SOAP AND WATER TP SCH ×2 (01:00→13:53)
[2017-07-08] MEDS: NACL 0.9% IRR 250 ML BOTTLE IR SCH ×3 (01:00→13:52)
[2017-07-08] MEDS: TEMAZEPAM 15 MG CAP PO PRN ×2 (01:56→23:03)
[2017-07-08 04:00] VITALS: BP 140/90
--- NOTE | 2017-07-08 04:00 | NUR ---
CHECKED ON PATIENT. PATIENT IS ASLEEP. NO SIGNS AND SYMPTOMS OF DISTRESS NOTED. WILL CONTINUE TO MONITOR.
[2017-07-08] MEDS: NITROGLYCERIN 2% 1 GM PKT TP SCH ×3 (04:29→21:00)
[2017-07-08] MEDS: LEVOTHYROXINE 0.075 MG TAB PO SCH (05:40)
[2017-07-08] MEDS: CLINDAMYCIN 150 MG CAP PO SCH ×5 (05:41→23:03)
[2017-07-08] MEDS: BLOOD GLUCOSE MONITORING 1 DEV DEV FS SCH ×4 (06:37→20:10)
--- NOTE | 2017-07-08 07:15 | NUR ---
PATIENT REPORT GIVEN TO MORNING NURSE AT BEDSIDE. PATIENT IS IN STABLE CONDITION
--- NOTE | 2017-07-08 07:16 | NUR ---
RECEIVED REPORT FROM WAGE HAND NURSE NURIS AT BEDSIDE FOR CONTINUITY OF CARE. PT IS AWAKE AND ORIENTED X4. INTRODUCED SELF AND UPDATED BOARD. PT IS SITTING UP IN BED WATCHING TV. COMPLAINED OF PAIN ON LOWER BACK. OFFERED PAIN MED BUT REFUSED MED. EXPLAINED RISK AND BENEFITS. PT STATED "I'LL BE FINE WITHOUT IT." IV TO L AC 20G SL. SITE INTACT. EMPTIED URINAL. 50ML NOTED. O2 SAT 97% ON RA. NO SIGNS OF DISTRESS. BED IN LOW POSITION, WHEELS LOCKED, CALL LIGHT WITHIN REACH. WILL CONTINUE TO MONITOR.
[2017-07-08 08:00] VITALS: BP 143/87
[2017-07-08] MEDS: ATORVASTATIN 20 MG TAB PO SCH (08:50)
[2017-07-08] MEDS: CARVEDILOL 12.5 MG TAB PO SCH (08:50)
[2017-07-08] MEDS: LISINOPRIL 5 MG TAB PO SCH (08:50)
[2017-07-08] MEDS: CLOPIDOGREL 75 MG TAB PO SCH (08:51)
[2017-07-08] MEDS: ASPIRIN 81 MG TAB.CHEW PO SCH (08:52)
[2017-07-08] MEDS: amLODIPine 5 MG TAB PO SCH (08:52)
[2017-07-08] MEDS: DOCUSATE SODIUM 100 MG GELCAP PO SCH (08:54)
[2017-07-08] MEDS: FOAM DRESSING TP SCH (10:50)
[2017-07-08 12:00] VITALS: BP 119/75
[2017-07-08] MEDS: INSULIN LISPRO SLIDING SCALE 100 UNITS/ML VIAL SUBQ PRN ×3 (12:30→20:18)
--- NOTE | 2017-07-08 12:34 | NUR ---
PT REFUSED NITRO-BID OINTMENT. PT STATED HE DOESN'T HAVE CHEST PAIN. GAVE RISKS AND BENEFITS TO MED. PT STILL REFUSED MED. NO SIGNS OF DISTRESS. PT SITTING UP IN BED EATING LUNCH. BED IN LOW POSITION, CALL LIGHT WITHIN REACH. WILL CONTINUE TO MONITOR.
--- NOTE | 2017-07-08 13:01 | NUR ---
CM NOTE CONCURRENT REVIEW FAXED TO [facility] [phone] JOANNA PH# [phone]. PER CHARISSA García OF [facility] PH# [phone] THEY ARE STILL TRYING TO GET A SNF.
[2017-07-08] MEDS: GAUZE TP SCH (13:53)
--- NOTE | 2017-07-08 14:00 | NUR ---
PT HAD A SMALL BM. CLEANED BUTTOCKS WITH SOAP AND WATER AND LEFT HEALING SACRAL WOUND FRANKIE. CHANGED R ARM DRESSINGS AND CLEANSED WITH NS AND COVERED WITH GAUZE AND TAPE. CHANGED R BKA STUMP DRESSING. CLEANSED WITH NS, APPLIED SILVASORB GEL, ADAPTIC DRESSING AND COVERED WITH GAUZE. CLEANSED L LEG MULTIPLE SCABS AND CLEANSED WITH BETADINE, CREATIVE WRITING TEACHER. CHANGED L WRIST DRESSING OF SKIN TEAR. CLEANSED WITH NS, COVERED WITH VERSATEL. NO BLEEDING, DRAINAGE OR ODOR NOTED FROM WOUNDS AND SKIN TEARS. TOOK PICTURES OF WOUNDS. PT TOLERATED WELL. RESTING IN BED NOW. NO SIGNS OF DISTRESS. CALL LIGHT WITHIN REACH. WILL CONTINUE TO MONITOR.
--- NOTE | 2017-07-08 15:15 | NUR ---
PT SLEEPING WITH VISIBLE RESPIRATIONS. NO SIGNS OF DISTRESS. SIDE RAILS UP, WHEELS LOCKED, CALL LIGHT WITHIN REACH. WILL CONTINUE TO MONITOR.
[2017-07-08 16:00] VITALS: BP 112/71
[2017-07-08] MEDS: HYDROcodone/APAP 5/325 MG 1 TAB TAB PO PRN (18:05)
--- NOTE | 2017-07-08 19:14 | NUR ---
ENDORSED PT TO SHIPWRIGHT NURSE NURIS AT BEDSIDE FOR CONTINUITY OF CARE. PT IN STABLE CONDITION.
--- NOTE | 2017-07-08 19:15 | NUR ---
PATIENT REPORT RECEIVED FROM MORNING NURSE AT BEDSIDE. PATIENT IS AWAKE AND ALERT, RESTING COMFORTABLY IN BED. NO SIGNS AND SYMPTOMS OF DISTRESS NOTED. NO COMPLAINTS OF PAIN AT THIS TIME. IV SITE NOTED ON LEFT AC, SALINE LOCKED. DRESSING ON LEFT FOREARM DRY AND INTACT. SCABS NOTED ON BOTH LOWER EXTREMITIES. PATIENT HAS A RIGHT BKA. PLAN OF CARE DISCUSSED WITH PATIENT. REINFORCEMENT NEEDED. BED IN LOWEST POSITION, SIDE RAILS UP AND CALL LIGHT WITHIN REACH. WILL CONTINUE TO MONITOR.
[2017-07-08 20:00] VITALS: BP 116/74
--- NOTE | 2017-07-08 20:30 | NUR ---
ASSISTED PATIENT WITH BEDPAN. PATIENT HAD A MODERATE SIZED BOWEL MOVEMENT. PERICARE DONE. PATIENT TOLERATED WELL. WILL CONTINUE TO MONITOR.
--- NOTE | 2017-07-08 21:00 | NUR ---
PATIENT REFUSED HEPARIN AND NITRO-BID. EDUCATED PATIENT ON BOTH MEDICATIONS. PATIENT STILL REFUSED.
[2017-07-09] VITALS: BP 115/70
[2017-07-09] MEDS: LORazepam 2 MG/ML VIAL IVP PRN (00:51)
[2017-07-09] MEDS: MILD SOAP AND WATER TP SCH ×2 (00:58→13:50)
[2017-07-09] MEDS: NACL 0.9% IRR 250 ML BOTTLE IR SCH ×3 (00:58→13:50)
--- NOTE | 2017-07-09 03:20 | NUR ---
CHECKED ON PATIENT. PATIENT IS ASLEEP. NO SIGNS AND SYMPTOMS OF DISTRESS NOTED. BREATHING EVEN AND UNLABORED. WILL CONTINUE TO MONITOR.
[2017-07-09 04:00] VITALS: BP 110/69
[2017-07-09] MEDS: NITROGLYCERIN 2% 1 GM PKT TP SCH ×2 (04:25→13:00)
[2017-07-09] MEDS: LEVOTHYROXINE 0.075 MG TAB PO SCH (05:54)
[2017-07-09] MEDS: CLINDAMYCIN 150 MG CAP PO SCH ×2 (05:54→12:02)
[2017-07-09] MEDS: BLOOD GLUCOSE MONITORING 1 DEV DEV FS SCH ×2 (06:37→11:30)
--- NOTE | 2017-07-09 07:28 | NUR ---
PATIENT REPORT GIVEN TO MORNING NURSE AT BEDSIDE. PATIENT IS IN STABLE CONDITION
--- NOTE | 2017-07-09 07:29 | NUR ---
REPORT RECEIVED FROM SCRAP PICKER NURSE AT BEDSIDE FOR CONTINUITY OF CARE. PATIENT IS ASLEEP, RESTING COMFORTABLY IN BED. NO SIGNS AND SYMPTOMS OF DISTRESS NOTED. NO COMPLAINTS OF PAIN AT THIS TIME. IV SITE NOTED ON LEFT AC, SALINE LOCKED. DRESSING ON LEFT FOREARM DRY AND INTACT. SCABS NOTED ON BOTH LOWER EXTREMITIES. PATIENT HAS A RIGHT BKA. PLAN OF CARE DISCUSSED WITH PATIENT. REINFORCEMENT NEEDED. SAFETY AND ISOLATION PRECAUTIONS IN PLACE, BED IN LOWEST POSITION, SIDE RAILS UP AND CALL LIGHT WITHIN REACH. WILL CONTINUE TO MONITOR PATIENT.
[2017-07-09 08:00] VITALS: BP 131/75
[2017-07-09] MEDS: DOCUSATE SODIUM 100 MG GELCAP PO SCH (09:00)
[2017-07-09] MEDS: LISINOPRIL 5 MG TAB PO SCH (09:36)
[2017-07-09] MEDS: amLODIPine 5 MG TAB PO SCH (09:36)
[2017-07-09] MEDS: ATORVASTATIN 20 MG TAB PO SCH (09:36)
[2017-07-09] MEDS: CLOPIDOGREL 75 MG TAB PO SCH (09:36)
[2017-07-09] MEDS: ASPIRIN 81 MG TAB.CHEW PO SCH (09:36)
[2017-07-09] MEDS: CARVEDILOL 12.5 MG TAB PO SCH (09:37)
--- NOTE | 2017-07-09 09:40 | NUR ---
ADMINISTERED MORNING MEDICATIONS, PATIENT REFUSED COLACE BECAUSE "I AM ALREADY POOPING, I DON'T NEED IT" AND HEPARIN SUBQ. PATIENT TOLERATED THE MEDICATIONS WELL. NO SIGNS OF DISTRESS OR SOB NOTED. PATIENT STATES PAIN 8/10 D/T BACK BUT REFUSED NORCO PRN. EDUCATION GIVEN. PATIENT REINFORCED REFUSAL. SAFETY AND ISOLATION PRECAUTION IN PLACE, CALL LIGHT WITHIN REACH. WILL CONTINUE TO MONITOR PATIENT.
--- NOTE | 2017-07-09 09:53 | NUR ---
CM NOTE CONCURRENT REVIEW FAXED TO [facility] [phone] JOANNA PH# [phone]. PER CHARISSA García AND MO Montes De Oca OF [facility] PH# [phone] THEY ARE STILL TRYING TO GET A SNF. [facility] D/C REHABILITATION MANAGER ASAF GARVIN. [facility] CM JOANNA IS UNAVAILABLE TODAY. PER NIKI Cooper OF [facility] THEY DON'T HAVE A CONTRACT WITH [facility].
--- NOTE | 2017-07-09 11:50 | NUR ---
INFORMED PATIENT OF PENDING TRANSFER TO [facility]. PATIENT VERBALIZED UNDERSTANDING. SAFETY AND ISOLATION PRECAUTION IN PLACE, CALL LIGHT WITHIN REACH. WILL CONTINUE TO MONITOR PATIENT.
[2017-07-09] MEDS: INSULIN LISPRO SLIDING SCALE 100 UNITS/ML VIAL SUBQ PRN (12:00)
--- NOTE | 2017-07-09 12:04 | NUR ---
CM NOTE FOLLOWED UP WITH CHARISSA OF [facility] AND SHE SAID PATIENT IS GOING TO [facility] THIS AFTERNOON. CHARGE NURSE CHELY GARVIN.
--- NOTE | 2017-07-09 12:55 | NUR ---
07/09/17 RD FOLLOW UP COMPLETED. PLEASE REFER TO NUTRITION ASSESSMENT UNDER CARE ACTIVITY FOR ESTIMATED NUTRITIONAL NEEDS. CONSIDER LIBERALIZED REGULAR DIET RD TO FOLLOW-UP IN 3-5 DAYS PATIENT IS MODERATE RISK. ISAC ROCHA RD
--- NOTE | 2017-07-09 13:00 | NUR ---
I attempted to contact patient's Brother Morales Saab at as courtesy call to provide him with Patient's current status/condition. Mr. Morales Saab did not respond call I left him a MSG with my contact number and a request for a call back.
[2017-07-09] MEDS: GAUZE TP SCH (13:50)
--- NOTE | 2017-07-09 14:10 | NUR ---
PATIENT RESTING, WATCHING TV, NO SIGNS OF DISTRESS OR SOB NOTED. BREATHING EVEN AND UNLABORED. PATIENT REQUESTED ICE CREAM, CALLED DIETARY, TRACK ANNOUNCER ALLOWED ICE CREAM TO BE GIVEN. PATIENT GIVEN ICE CREAM. SAFETY AND ISOLATION PRECAUTION IN PLACE, CALL LIGHT WITHIN REACH. WILL CONTINUE TO MONITOR PATIENT.
--- NOTE | 2017-07-09 15:00 | NUR ---
I attempted to contact patient's Brother Morales Saab for the second time at as courtesy call to provide him with Patient's current status/condition. Mr. Morales Saab did not respond call I left him a MSG with my contact number and a request for a call back.
--- NOTE | 2017-07-09 16:00 | NUR ---
PATIENT CHANGED AND CLEANED IN PREPARATION FOR DISCHARGE. DISCHARGE INSTRUCTIONS GIVEN. PATIENT VERBALIZED UNDERSTANDING. ID BANDS CUT. PICTURES OF WOUNDS, SKIN TEARS, AND BRUISES TAKEN. PATIENT DECLINED TO HAVE HIS BLOOD SUGAR CHECK. VS WNL, BP 127/71 HR 65 O2 97% RR 18. SAFETY PRECAUTION IN PLACE, CALL LIGHT WITHIN REACH, WILL CONTINUE TO MONITOR PATIENT.
--- NOTE | 2017-07-09 16:30 | NUR ---
PATIENT DISCHARGE VIA GURNEY WITH [facility] FROM [facility]. PATIENT IN STABLE CONDITION.
[2017-07-09 18:02] VITALS: BP 127/71
== END 2017-07-09 16:30 | DRG 194 ==
LOC: MED 14:42 → MTU 18:25
PROVIDERS: ADMIT Internal Medicine; ATTEND Internal Medicine
PROC: 5A1D70Z Performance of Urinary Filtration, Intermittent, Less than 6 Hours Per Day (ICD-10-PCS; principal; 2017-07-06)
DX: I13.2 Hypertensive heart and chronic kidney disease with heart failure and with stage 5 chronic kidney disease, or end stage renal disease (principal); N17.9 Acute kidney failure, unspecified; E44.0 Moderate protein-calorie malnutrition; N18.6 End stage renal disease; I42.9 Cardiomyopathy, unspecified; L03.116 Cellulitis of left lower limb; E11.22 Type 2 diabetes mellitus with diabetic chronic kidney disease; E11.51 Type 2 diabetes mellitus with diabetic peripheral angiopathy without gangrene; R07.89 Other chest pain; Z66 Do not resuscitate; Z51.5 Encounter for palliative care; E87.5 Hyperkalemia; F14.90 Cocaine use, unspecified, uncomplicated; I50.43 Acute on chronic combined systolic (congestive) and diastolic (congestive) heart failure; J44.9 Chronic obstructive pulmonary disease, unspecified; F17.210 Nicotine dependence, cigarettes, uncomplicated; E03.9 Hypothyroidism, unspecified; D63.1 Anemia in chronic kidney disease; G89.4 Chronic pain syndrome; Z99.2 Dependence on renal dialysis; Z88.0 Allergy status to penicillin; Z68.22 Body mass index [BMI] 22.0-22.9, adult; Z89.511 Acquired absence of right leg below knee; Z95.810 Presence of automatic (implantable) cardiac defibrillator; Z86.14 Personal history of Methicillin resistant Staphylococcus aureus infection; Z79.899 Other long term (current) drug therapy; Z95.820 Peripheral vascular angioplasty status with implants and grafts; Z83.3 Family history of diabetes mellitus; Z82.49 Family history of ischemic heart disease and other diseases of the circulatory system
CPT/HCPCS: 36415; 71045; 71250; 80048; 80053; 82550; 82553; 82948; 83036; 84484; 85025; 87070; 87081; 87186; 93005; 96365; 96375; 99285; J1170; J1644; J2060; J2270; J2405; J3490; J7030; J7060; Q0092